=== PATIENT | female | born 1950 | race Caucasian/White ===

== ENCOUNTER 2021-03-20 12:47 | Emergency (ER) | payer MEDICARE, SELFPAY ==
[2021-03-20 13:02] VITALS: BP 156/82; PULSE 100; RESP 20; TEMP 37.4; O2SAT 99
[2021-03-20 13:24] VITALS: BP 156/82; PULSE 100; RESP 20; TEMP 37.4; O2SAT 99
--- NOTE | 2021-03-20 13:48 | ED.MALEGU ---
HPI - Male Genitourinary General Chief complaint: Urogenital-Male Stated complaint: Urinary Problem Source: patient Mode of arrival: ambulatory Limitations: no limitations History of Present Illness HPI Narrative: Feels a 70-year-old male patient new ambulance needed into the [facility]. Shahab states he has a 24-hour history of painful urination. Patient denies fever, chills, or other symptoms. Patient has used no [id number] medications. Patient states he has had prostate problems in the past and had surgery and has no issues since. Patient has no recent history of any urinary tract infection Related Data Home Medications Medication Instructions Recorded Confirmed clopidogrel 75 mg PO DAILY 03/20/21 03/20/21 lisinopril 40 mg PO DAILY 03/20/21 03/20/21 Allergies Allergy/AdvReac Type Severity Reaction Status Date / Time Sulfa (Sulfonamide Allergy Hives Verified 03/20/21 13:23 Antibiotics) Review of Systems Review of Systems: CONSTITUTIONAL: Denies body aches, fever, chills, or sweats. EYES: Denies visual changes, redness, or discharge. ENT: Denies rhinorrhea, congestion, sore throat, or otalgia. CARDIOVASCULAR: Denies chest pain, palpitations, or edema. RESPIRATORY: Denies cough or dyspnea. GASTROINTESTINAL: Denies abdominal pain, nausea, vomiting, or diarrhea. GENITOURINARY: + dysuria, denies hematuria. SKIN: Denies rash, itching, or wounds. MUSCULOSKELETAL: Denies back pain, joint pain, or myalgia. NEUROLOGIC: Denies headache, numbness, tingling, or weakness. PSYCH: Denies depression or anxiety. All systems reviewed & are unremarkable except as noted in HPI and below PMFSH Comments At time of signature, I have reviewed and agree with nursing past medical, surgical, social and family history unless otherwise noted. Please see nursing chart for further information. There is no relevant family history pertinent to the presenting complaint Exam Narrative: GENERAL: Well-appearing, well-nourished, and in no acute distress. HEAD: Normocephalic, atraumatic. EYES: EOMI. No redness or drainage. Conjunctivae normal. ENT: Mucous membranes pink and moist. Nares clear. No rhinorrhea. . NECK: Normal AROM. Supple. No lymphadenopathy. MUSCULOSKELETAL: No bony tenderness. EXTREMITIES: Normal range of motion. No edema. SKIN: Warm, dry, no rash. Capillary refill normal. Normal skin turgor. NEURO: No focal deficits. Alert and oriented x3. Gait steady. PSYCH: Normal affect. No signs of depression or anxiety. Course Vital Signs Vital signs: Vital Signs Temperature 37.4 C 03/20/21 13:02 Pulse Rate 100 03/20/21 13:02 Respiratory Rate 20 03/20/21 13:02 Blood Pressure 156/82 H 03/20/21 13:02 Pulse Oximetry 99 03/20/21 13:02 Temperature 37.4 C 03/20/21 13:24 Pulse Rate 100 03/20/21 13:24 Respiratory Rate 20 03/20/21 13:24 Blood Pressure 156/82 H 03/20/21 13:24 Pulse Oximetry 99 03/20/21 13:24 Reviewed. Pt has been instructed to follow up with his PCP regarding his elevated blood pressure today. MDM - Male Genitourinary MDM Narrative Medical decision making narrative: Patient's urine showed 3+ WBCs and 3+ bacteria, patient has painful urination. Patient denies CVA tenderness. Differential Diagnosis Differential diagnosis: Likely urinary tract infection, urethritis and prostatitis Medical Records Attestation: I reviewed the patient's medical records. Lab Data Attestation: I reviewed the patient's lab results. Labs: Urine Glucose 3+ Reference Range: Negative Urine Glucose 3+ Reference Range: Negative Urine Bilirubin Negative Reference Range: Negative Urine Bilirubin Negative Reference Range: Negative
== END 2021-03-20 14:07 | disposition home or self-care (01) ==
PROVIDERS: Emergency Provider Nurse Practitioner Family; PCP Family Medicine
DX: N39.0 Urinary tract infection, site not specified (principal); I10 Essential (primary) hypertension; Z86.73 Personal history of transient ischemic attack (TIA), and cerebral infarction without residual deficits
CPT/HCPCS: 81003; 87086; 87147; 87181; 87186; 99213; G0463